=== PATIENT | male | born 1940 | race Caucasian/White ===

== ENCOUNTER → 2017-04-20 | Outpatient (CLI) | payer MEDICARE ==
[2017-04-20 18:14] LABS: LYMPH % 23.5 % (10-50)
[2017-04-20 18:56] LABS: URINE BILIRUBIN - DIPSTICK NEGATIVE (NEG); URINE BLOOD NEGATIVE (NEG)
[2017-04-20 19:07] LABS: HEMOGLOBIN 11.8 g/dL (14.1-18.0)
[2017-04-20 19:29] LABS: BUN 63 mg/dL (7-18)
[2017-04-20 19:31] LABS: GFR (ESTIMATED) 15 ML/MIN (>60)
[2017-04-23 09:38] LABS: Vitamin D, 25-Hydroxy 31.1 ng/mL (30.0-100.0)
== END ==
LOC: LAB 17:44
PROVIDERS: Internal Medicine Nephrology
DX: N18.4 Chronic kidney disease, stage 4 (severe) (principal)

== ENCOUNTER → 2017-04-30 | Outpatient (CLI) | payer MEDICARE ==
[~2017-04-30] MED LIST: ADVICOR 20 MG-51 TER PO; ASPIRIN 81MG TA81 MG PO; AVODART0.5 MG PO; CIPRO 500MG TA500 MG PO; CYCLOBENZAPRINE10 MG PO; FLAGYL500 MG PO; GLIPIZIDE 5MG TA5 MG PO; IRBESARTAN PO; LOMOTIL 0.025 M1 TAB PO; LORATADINE 10MG10 M1 PO; LORTAB 5/500 501 TAB PO; MELOXICAM7.5 MG PO; METFORMIN500 MG PO; METOPROLOL25 MG PO; MULTIVITAMIN1 SGL PO; PHENERGAN 12.12.5 M1 PO; TAMSULOSIN HYD0.4 MG PO; VICODIN 5/500 T1 TAB PO
[2017-04-30 12:18] LABS: BUN 41 mg/dL (7-18)
[2017-04-30 12:26] LABS: GFR (ESTIMATED) 23 ML/MIN (>60)
== END ==
LOC: LAB 10:06
PROVIDERS: Internal Medicine Nephrology
DX: N18.4 Chronic kidney disease, stage 4 (severe) (principal)

== ENCOUNTER 2017-05-28 10:26 | Day surgery (SDC) | payer MEDICARE ==
[~2017-05-28] VITALS: Ht 180.3 cm; Wt 106.6 kg
--- NOTE | 2017-05-28 11:56 | Operative Note ---
Colonoscopy ([facility]) Procedure date: 05/28/17 Date of : 36 Procedure:Colonoscopy Colonoscopy with cold snare polypectomy Indications: Mr. Jaramillo is a 77-year-old gentleman who is here for follow-up screening/ surveillance colonoscopy. He does state that his mother had colon cancer in her early 80s. The patient did have a small tubular adenoma in March 2008. He also had a small polyp removed at the time of his last colonoscopy in April 2011 (3 mm polyp in transverse colonLuis Koko Steward). The patient does have some mild chronic constipation. He reports no rectal bleeding, abdominal pain, weight loss or change in his bowel habits. Performing Provider: Samuel Colin MD Referrring Provider: Carla Luciano M.D. Sedation: MAC sedation Procedure: Prior to the procedure, a history and physical exam was performed, and patient medications and allergies were reviewed. The risks and benefits of the procedure and the sedation options and risks were discussed with the patient. All questions were answered and informed consent was obtained. Patient identification and proposed procedure were verified by the physician and the nurse. The patient was placed in a left lateral decubitus position. Throughout the procedure, the patient's blood pressure, pulse, and oxygen saturations were monitored continuously. Findings: On digital rectal examination there was normal rectal tone. There were no external hemorrhoids. The prostate was 2+, moderately/more significantly firm but symmetric and smooth without nodules. The colonoscope was introduced through the anal canal to the rectum and advanced to the cecum. The ileocecal valve and appendiceal orifice were identified. The scope was advanced a short distance into the ileum which appeared grossly normal. The scope was then withdrawn into the colon. There was a larger 14-16 mm polyp in the cecum that was sessile and elongated and removed via cold snare polypectomy in piecemeal. The remaining cecum, ascending and transverse colon and mucosa were grossly normal. There were scattered diverticuli throughout the descending and sigmoid colon (LEFT colon). The rectum itself was normal. Upon retroflexion within the rectum there were grade 1 internal hemorrhoids. Impressions: 1. Large sessile cecal polyp (14-16 mm) 2. Extensive left-sided diverticulosis 3. Grade 1 internal hemorrhoids 4. Very firm prostate Recommendations: I will follow up the polyp histology. Based upon its larger size, I would consider repeat surveillance colonoscopy based upon the histologic findings but also will discuss whether this is warranted based upon age and comorbidities. I would encourage a fiber bowel regimen on a long-term daily maintenance basis. Complications: None EBL (ml): 0 at 115
[2017-05-28 13:30] VITALS: BP 150/86
== END 2017-05-28 13:18 | disposition home or self-care (01) ==
LOC: SDC 10:26
PROVIDERS: Internal Medicine Gastroenterology
PROC: 0DBH8ZX Excision of Cecum, Via Natural or Artificial Opening Endoscopic, Diagnostic (ICD-10-PCS; principal; 2017-05-28 11:30)
DX: Z12.11 Encounter for screening for malignant neoplasm of colon (principal); Z86.010 Personal history of colon polyps; K63.5 Polyp of colon; K57.30 Diverticulosis of large intestine without perforation or abscess without bleeding; K64.0 First degree hemorrhoids; E11.9 Type 2 diabetes mellitus without complications

== ENCOUNTER 2017-06-09 18:38 | Emergency (ER) | payer MEDICARE ==
[~2017-06-09] VITALS: Ht 180.3 cm; Wt 104.3 kg
--- OUTSIDE RECORDS SUMMARY | 2017-06-09 19:06 | External Medical Summary Rpt | CCD ---
Author Author , CANDELARIA Organization CANDELARIA Address Unknown Phone [email or web address] Purpose Continuity of Care Document - 11-26-2013 through 2016 Results Labs Lab Lab Date Result Refere Interp Status Commen Order Detail nces retati t Range on Glucose capillary blood glucometer (05-28-2017 10:55) Glucose = 86 70-110 complet 017 mg/dl ed capilla 10:[address] CBC w auto diff (05-26-2017 08:23) Blood = 7.6 4.8-10. complet leukocy 017 K/MM3 8 ed ender 08:23 count (number /volume ) Automat = 13.5 11.5-17 complet ed 017 % .5 ed erythro 08:23 cyte distrib ution width Red = 3.52 4.6-6.2 complet blood 017 M/mm3 ed cell 08:23 count Blood = 199 142-424 complet platele 017 K/mm3 ed t count 08:23 Automat = 8.7 7.4-10. complet ed 017 fl 4 ed blood 08:23 platele t mean volume kevyn [place] % = 5.7 % 1.7-9.3 complet 017 ed 08:23 Absolut = 0.4 0.1-1.0 complet e 017 K/mm3 ed monocyt 08:23 e count Automat = 99.5 82.2-97 complet ed 017 fl .8 ed erythro 08:23 cyte mean corpusc ular v Automat = 31.3 31.8-35 complet ed 017 g/dl .4 ed erythro 08:23 cyte mean corpusc ular h Mean = 31.2 27-31.2 complet corpusc 017 pg ed ular 08:23 hemoglo bin (MCH) determ Lymphoc 11-04-2 = 24.1 10-50 complet yte 017 % ed count, 08:23 blood, automat ed Absolut = 1.8 0.7-4.5 complet e 017 K/mm3 ed lymphoc 08:23 yte count Blood = 11.0 14.1-18 complet hemoglo 017 g/dL .0 ed bin 08:23 measure ment (mass/v olum Blood = 35.1 42.0-52 complet hematoc 017 % .0 ed rit 08:23 (volume fractio n) Granulo = 63.9 37.0-80 complet cyte 017 % .0 ed percent 08:23 age Blood = 4.8 1.3-8.0 complet granulo 017 K/mm3 ed cytes 08:23 automat ed count (numb Automat = 5.4 % 0.1-12. complet ed 017 0 ed blood 08:23 eosinop hils/10 0 leukocy t Automat = 0.4 0.0-0.4 complet ed 017 K/mm3 ed blood 08:23 eosinop hil count Baso % = 0.8 % 0.1-2.0 complet 017 ed 08:23 Automat = 0.1 0-0.2 complet ed 017 K/MM3 ed blood 08:23 basophi l count (count/ vo Renal function panel (05-26-2017 08:23) Phospho = 4.8 2.4-4.9 complet erica 017 mg/dL ed measure 08:23 ment Serum = 142 136-145 complet sodium 017 mmoL/L ed measure 08:23 ment Serum = 4.9 3.5-5.1 complet potassi 017 mmoL/L ed um 08:23 measure ment Serum = 101 74-106 complet or 017 mg/dL ed plasma 08:23 glucose measure ment (mas Estimat = 25 >60 complet ed 017 ML/MIN ed glomeru 08:23 lar filtrat ion rate (GF Comment: REFERENCE RANGE: >60 ML/MIN/1.73 SQUARE METERS Comment: If this patient is -[place], then multiply the Comment: result by 1.210. Serum 2 = 2.5 0.70-1. complet or 017 mg/dL 30 ed plasma 08:23 creatin ine measure ment ( Carbon 2 = 20 21.0-32 complet dioxide 017 mmoL/L .0 ed 08:23 measure ment Serum 2 = 111 98-107 complet or 017 mmoL/L ed plasma 08:23 chlorid e measure ment (mo Serum 2 = 8.9 8.5-10. complet or 017 mg/dL 1 ed plasma 08:23 calcium measure ment (mas Serum 2 = 35 7-18 complet or 017 mg/dL ed plasma 08:23 urea nitroge n measure men Serum 2 = 3.4 3.4-5.0 complet or 017 gm/dL ed plasma 08:23 albumin measure ment ([facility] Basic metabolic panel (04-30-2017 10:08) Serum = 143 136-145 complet sodium 017 mmoL/L ed measure 10:08 ment Serum = 5.4 3.5-5.1 complet potassi 017 mmoL/L ed um 10:08 measure ment Serum = 127 74-106 complet or 017 mg/dL ed plasma 10:08 glucose measure ment (mas Estimat = 23 >60 complet ed 017 ML/MIN ed glomeru 10:08 lar filtrat ion rate (GF Comment: REFERENCE RANGE: >60 ML/MIN/1.73 SQUARE METERS Comment: If this patient is -[place], then multiply the Comment: result by 1.210. Serum = 2.7 0.70-1. complet or 017 mg/dL 30 ed plasma 10:08 creatin ine measure ment ( Carbon 2 = 23 21.0-32 complet dioxide 017 mmoL/L .0 ed 10:08 measure ment Serum = 112 98-107 complet or 017 mmoL/L ed plasma 10:08 chlorid e measure ment (mo Serum = 8.6 8.5-10. complet or 017 mg/dL 1 ed plasma 10:08 calcium measure ment (mas Serum 10-09-2 = 41 7-18 complet or 017 mg/dL ed plasma 10:08 urea nitroge n measure men Protein [Presence] in Urine (04-20-2017 17:53) Protein 11.5 0.0mg Normal complet 017 /dL - ed [Presen 17:53 15.0m ce] in g/dL Urine Urinalysis dipstick W Reflex Microscopic panel in Urine (04-20-2017 17:46) Leukocy 5-10 O complet ender 017 wbc/hpf ed [#/volu 17:46 me] in Urine Urinalysis dipstick W Reflex Microscopic panel in Urine (04-20-2017 17:46) Appeara CLEAR CLEAR complet nce of 017 ed Urine 17:46 Bilirub NEGATIV NEG complet in 017 E ed [Presen 17:46 ce] in Urine by Test strip Erythro NEGATIV NEG complet cytes 017 E ed [Presen 17:46 ce] in Urine Color YELLOW YELLOW complet of 017 ed Urine 17:46 Ketones NEGATIV NEG complet 017 E ed [Presen 17:46 ce] in Urine by Automat ed test strip Mucus NEGATIV NEG complet [Presen 017 E ed ce] in 17:46 Urine sedimen t by Light microsc opy Nitrite NEGATIV NEG complet 017 E ed [Presen 17:46 ce] in Urine by Test strip Urobili 0.2 NEG complet nogen 017 ed [Presen 17:46 ce] in Urine by Test strip
--- OUTSIDE RECORDS SUMMARY | 2017-06-09 19:06 | External Medical Summary Rpt | CCD ---
Author Author , CANDELARIA Organization CANDELARIA Address Unknown Phone [email or web address] Purpose Continuity of Care Document - 11-26-2013 [...] blood 08:23 platele t mean volume kevyn [place] % = 5.7 % 1.7-9.3 complet 017 [...] SQUARE METERS Comment: If this patient is -[place], then multiply the Comment: result by 1.210. [...] gm/dL ed plasma 08:23 albumin measure ment ([facility] Basic metabolic panel (04-30-2017 10:08) Serum = [...] SQUARE METERS Comment: If this patient is -[place], then multiply the Comment: result by 1.210. [...]
--- OUTSIDE RECORDS SUMMARY | 2017-06-09 19:07 | External Medical Summary Rpt ---
Author Author DAVEHOANG Richardson, [employer] Address Unknown Phone Unavailable Results Glucose [Mass/volume] in Capillary blood by Glucometer Observa Value Referen Units Interpr Notes Date tion ce etation Range Glucose 70 - 110 mg/dl Normal No May 6 [Mass/vol informati 2016 ume] in on in 10:55 AM Capillary source blood by data Glucomete r Renal function 2000 panel in Serum or Plasma Observa Value Referen Units Interpr Notes Date ti ce etation Range Albumin 3.4 - 5.0 gm/dL Normal No May 4 [Mass/vol informati 2016 8:23 ume] in on in AM Serum or source Plasma data Urea 7 - 18 mg/dL High No May 26 nitrogen informati 2016 8:23 [Mass/vol on in AM ume] in source Serum or data Plasma Calcium 8.5 - mg/dL Normal No May 26 [Mass/vol 10.1 informati 2016 8:23 ume] in on in AM Serum or source Plasma data Chloride 98 - 107 mmoL/L High No May 26 [Moles/vo informati 2017 8:23 lume] in on in AM Serum or source Plasma data Carbon 21.0 - mmoL/L Low No May 26 dioxide, 32.0 informati 2016 8:23 total on in AM [Moles/vo source lume] in data Serum or Plasma Creatinin 0.70 - mg/dL High No May 26 e 1.30 informati 2017 8:23 [Mass/vol on in AM ume] in source Serum or data Plasma Estimated >60 ML/MIN No REFERENCE May 26 informati RANGE: 2017 8:23 glomerula on in >60 AM r source ML/MIN/1. filtratio data 73 SQUARE n rate METERSIf (GF this patient is -A merican, then multiply theresult by 1.210. Glucose 74 - 106 mg/dL Normal No May 26 [Mass/vol informati 2016 8:23 ume] in on in AM Serum or source Plasma data Potassium 3.5 - 5.1 mmoL/L Normal No May 26 informati 2016 8:23 [Moles/vo on in AM lume] in source Serum or data Plasma Sodium 136 - 145 mmoL/L Normal No May 4 [Moles/vo informati 2016 8:23 lume] in on in AM Serum or source Plasma data Phosphate 2.4 - 4.9 mg/dL Normal No May 26 informati 2016 8:23 [Moles/vo on in AM lume] in source Unspecifi data ed specimen CBC W Auto Differential panel in Blood Observa Value Referen Units Interpr Notes Date tion ce etation Range Basophils 0 - 0.2 K/MM3 Normal No May 4 informati 2016 8:23 [#/volume on in AM ] in source Blood by data Automated count Basophils 0.1 - 2.0 % Normal No May 26 /100 informati 2016 8:23 leukocyte on in AM s in source Blood by data Automated count Eosinophi 0.0 - 0.4 K/mm3 Normal No May 4 ls informati 2016 8:23 [#/volume on in AM ] in source Blood by data Automated count Eosinophi 0.1 - % Normal No May 26 ls/100 12.0 informati 2016 8:23 leukocyte on in AM s in source Blood by data Automated count Granulocy 1.3 - 8.0 K/mm3 Normal No May 4 ender informati 2016 8:23 [#/volume on in AM ] in source Blood by data Automated count Granulocy 37.0 - % Normal No May 26 ender/100 80.0 informati 2016 8:23 leukocyte on in AM s in source Blood by data Automated count Hematocri 42.0 - % Low No May 26 t [Volume 52.0 informati 2016 8:23 on in AM Fraction] source of Blood data Hemoglobi 14.1 - g/dL Low No May 26 n 18.0 informati 2016 8:23 [Mass/vol on in AM ume] in source Blood data Lymphocyt 0.7 - 4.5 K/mm3 Normal No May 4 es informati 2016 8:23 [#/volume on in AM ] in source Unspecifi data ed specimen by Automated count Lymphocyt 10 - 50 % Normal No May 4 es informati 2016 8:23 [#/volume on in AM ] in source Unspecifi data ed specimen by Automated count Erythrocy 27 - 31.2 pg Normal No May 4 te mean inform2016 8:23 corpuscul on in AM ar source hemoglobi data n [Entitic mass] Erythrocy 31.8 - g/dl Low No May 26 te mean 35.4 informati 2016 8:23 corpuscul on in AM ar source hemoglobi data n concentra tion [Mass/vol ume] by Automated count Erythrocy 82.2 - fl High No May 26 te mean 97.8 informati 2016 8:23 corpuscul on in AM ar volume source [Entitic data volume] by Automated count Monocytes 0.1 - 1.0 K/mm3 Normal No May 4 informati 2016 8:23 [#/volume on in AM ] in source Blood by data Automated count Monocytes 1.7 - 9.3 % Normal No May 4 /100 informati 2016 8:23 leukocyte on in AM s in source Blood by data Automated count Platelet 7.4 - fl Normal May 26 mean 10.4 informati 2016 8:23 volume on in AM [Entitic source volume] data in Blood by Automated count Platelets 142 - 424 K/mm3 Normal No May 4 2016 8:23 [#/volume on in AM ] in source Blood data Erythrocy 4.6 - 6.2 M/mm3 Low No May 4 ender informati 2016 8:23 [#/volume on in AM ] in source Amniotic data fluid Erythrocy 11.5 - % Normal No May 26 te 17.5 informati 2016 8:23 distribut on in AM ion width source [Entitic data volume] by Automated count Leukocyte 4.8 - K/MM3 Normal No May 4 s 10.8 informati 2016 8:23 [#/volume on in AM ] in source Blood data Basic metabolic panel in Blood Observa Value Referen Units Interpr Notes Date tion ce etation Range Urea 7 - 18 mg/dL High No Apr 9 nitrogen informati 2016 [Mass/vol on in 10:08 AM ume] in source Serum or data Plasma Calcium 8.5 - mg/dL Normal No Apr 30 [Mass/vol 10.1 informati 2016 ume] in on in 10:08 AM Serum or source Plasma data Chloride 98 - 107 mmoL/L High No Apr 9 [Moles/vo informati 2016 lume] in on in 10:08 AM Serum or source Plasma data Carbon 21.0 - mmoL/L Normal No Apr 30 dioxide, 32.0 informati 2017 total on in 10:08 AM [Moles/vo source lume] in data Serum or Plasma Creatinin 0.70 - mg/dL High No Apr 30 e 1.30 informati 2017 [Mass/vol on in 10:08 AM ume] in source Serum or data Plasma Estimated >60 ML/MIN No REFERENCE Apr 30 informati RANGE: 2017 glomerula on in >60 10:08 AM r source ML/MIN/1. filtratio data 73 SQUARE n rate METERSIf (GF this patient is -A merican, then multiply theresult by 1.210. Glucose 74 - 106 mg/dL High No Apr 30 [Mass/vol informati 2016 ume] in on in 10:08 AM Serum or source Plasma data Potassium 3.5 - 5.1 mmoL/L High No Apr 30 informati 2017 [Moles/vo on in 10:08 AM lume] in source Serum or data Plasma Sodium 136 - 145 mmoL/L Normal No Apr 30 [Moles/vo informati 2016 lume] in on in 10:08 AM Serum or source Plasma data Creatinine [Mass/volume] in Urine Observa Value Referen Units Interpr Notes Date tion ce etation Range Creatinin 20 - 370 mg/dL Normal No Apr 20 e informati 2017 5:53 [Mass/vol on in PM ume] in source Urine data Protein [Presence] in Urine Observa Value Referen Units Interpr Notes Date tion ce etation Range Protein 11.5 0.0 - mg/dL Normal No Apr 20 15.0 informa 2016 [Presen tion in 5:53 PM ce] in source Urine data Calcium.ionized [Mass/volume] in Serum or Plasma by Ion-selective membrane electrode (ISE) Observa Value Referen Units Interpr Notes Date tion ce etation Range Calcium.i 4.5 - 5.6 mg/dL No Performed Apr 20 onized informati at: CB 2017 5:46 [Mass/vol on in - [facility] PM ume] in source Serum or data [id number] Plasma by 0 [facility], [facility] membrane [id number] electrode Lab (ISE) Director: Domingo Billings PhD, Phone: [phone] 25-Hydroxyvitamin D [Mass/volume] in Serum or Plasma Observa Value Referen Units Interpr Notes Date tion ce etation Range 25-Hydrox 30.0 - ng/mL No Vitamin D Sep 29 yvitamin 100.0 informati 2016 5:46 D on in deficienc PM [Mass/vol source y has ume] in data been Serum or defined Plasma by the [place] [facility] [place] e and an Endocrine Society practice guideline as alevel of serum 25-OH vitamin D less than 20 ng/mL (1,2).The Endocrine Society went on to further define vitamin Dinsuffic iency as a level between 21 and 29 ng/mL (2).1. IOM (Institut e of Medicine) . 2010. Dietary reference intakes for calcium and D. [place]: [employer].2. Jeff MF, Lili NC, Cathi Fernando AYALA, et al.Evalua tion, treatment , and preventio n of vitamin Ddeficien cy: an Endocrine Society clinical practiceg uideline. JCEM. 2010; 96(7):191 1-30.Perf ormed at: CB - [facility] [id number] [place], [place] [id number] Refrigeration Installer: Domingo Billings PhD, Phone: [phone] Parathyrin.intact [Mass/volume] in Serum or Plasma Observa Value Referen Units Interpr Notes Date tion ce etation Range Parathyri 15 - 65 pg/mL High Performed Sep n.intact at: CB 2016 5:46 [Mass/vol - [facility] PM ume] in Serum or [id number] Plasma [address] [place], [place] [id number] Refrigeration Installer: Domingo Billings PhD, Phone: [phone] Renal function 2000 panel in Serum or Plasma Observa Value Referen Units Interpr Notes Date tion ce etation Range Albumin 3.4 - 5.0 gm/dL Normal No Sep 29 [Mass/vol informati 2017 5:46 ume] in on in PM Serum or source Plasma data Urea 7 - 18 mg/dL High No Sep nitrogen informati 2017 5:46 [Mass/vol on in PM ume] in source Serum or data Plasma Calcium 8.5 - mg/dL Normal No Apr 20 [Mass/vol 10.1 informati 2016 5:46 ume] in on in PM Serum or source Plasma data Chloride 98 - 107 mmoL/L Normal No Sep 29 [Moles/vo informati 2016 5:46 lume] in on in PM Serum or source Plasma data Carbon 21.0 - mmoL/L Normal No Sep 29 dioxide, 32.0 informati 2016 5:46 total on in PM [Moles/vo source lume] in data Serum or Plasma Creatinin 0.70 - mg/dL High No Sep 29 e 1.30 informati 2016 5:46 [Mass/vol on in PM ume] in source Serum or data Plasma Estimated >60 ML/MIN No REFERENCE Sep 29 informati RANGE: 2016 5:46 glomerula on in >60 PM r source ML/MIN/1. filtratio data 73 SQUARE n rate METERSIf (GF this patient is -A merican, then multiply theresult by 1.210. Glucose 74 - 106 mg/dL High No Sep 29 [Mass/vol informati 2016 5:46 ume] in on in PM Serum or source Plasma data Potassium 3.5 - 5.1 mmoL/L High No Sep 29 informati 2016 5:46 [Moles/vo on in PM lume] in source Serum or data Plasma Sodium 136 - 145 mmoL/L Normal No Sep 29 [Moles/vo informati 2016 5:46 lume] in on in PM Serum or source Plasma data Phosphate 2.4 - 4.9 mg/dL High No Sep 29 informati 2016 5:46 [Moles/vo on in PM lume] in source Unspecifi data ed specimen CBC W Auto Differential panel in Blood Observa Value Referen Units Interpr Notes Date tion ce etation Range Basophils 0 - 0.2 K/MM3 Normal No Sep 29 informati 2016 5:46 [#/volume on in PM ] in source Blood by data Automated count Basophils 0.1 - 2.0 % Normal No Sep 29 /100 informati 2016 5:46 leukocyte on in PM s in source Blood by data Automated count Eosinophi 0.0 - 0.4 K/mm3 Normal No Sep 29 ls informati 2016 5:46 [#/volume on in PM ] in source Blood by data Automated count Eosinophi 0.1 - % Normal No Sep 29 ls/100 12.0 informati 2016 5:46 leukocyte on in PM s in source Blood by data Automated count Granulocy 1.3 - 8.0 K/mm3 Normal No Sep 29 ender informati 2016 5:46 [#/volume on in PM ] in source Blood by data Automated count Granulocy 37.0 - % Normal No Sep 29 ender/100 80.0 informati 2016 5:46 leukocyte on in PM s in source Blood by data Automated count Hematocri 42.0 - % Low No Sep 29 t [Volume 52.0 informati 2016 5:46 on in PM Fraction] source of Blood data Hemoglobi 14.1 - g/dL Low No Sep 29 n 18.0 informati 2016 5:46 [Mass/vol on in PM ume] in source Blood data Lymphocyt 0.7 - 4.5 K/mm3 Normal No Sep 29 es informati 2016 5:46 [#/volume on in PM ] in source Unspecifi data ed specimen by Automated count Lymphocyt 10 - 50 % Normal No Sep 29 es informati 2016 5:46 [#/volume on in PM ] in source Unspecifi data ed specimen by Automated count Erythrocy 27 - 31.2 pg Normal No Sep 29 te mean informati 2016 5:46 corpuscul on in PM ar source hemoglobi data n [Entitic mass] Erythrocy 31.8 - g/dl Normal No Sep 29 te mean 35.4 informati 2016 5:46 corpuscul on in PM ar source hemoglobi data n concentra tion [Mass/vol ume] by Automated count Erythrocy 82.2 - fl Normal No Sep 29 te mean 97.8 informati 2016 5:46 corpuscul on in PM ar volume source [Entitic data volume] by Automated count Monocytes 0.1 - 1.0 K/mm3 Normal No Sep 29 informati 2016 5:46 [#/volume on in PM ] in source Blood by data Automated count Monocytes 1.7 - 9.3 % Normal No Sep 29 /100 informati 2016 5:46 leukocyte on in PM s in source Blood by data Automated count Platelet 7.4 - fl Normal No Sep 29 mean 10.4 informati 2016 5:46 volume on in PM [Entitic source volume] data in Blood by Automated count Platelets 142 - 424 K/mm3 Normal No Sep 29 informati 2016 5:46 [#/volume on in PM ] in source Blood data Erythrocy 4.6 - 6.2 M/mm3 Low No Sep 29 ender informati 2017 5:46 [#/volume on in PM ] in source Amniotic data fluid Erythrocy 11.5 - % Normal No Sep 29 te 17.5 informati 2017 5:46 distribut on in PM ion width source [Entitic data volume] by Automated count Leukocyte 4.8 - K/MM3 Normal No Sep 29 s 10.8 informati 2016 5:46 [#/volume on in PM ] in source Blood data Urinalysis dipstick W Reflex Microscopic panel in Urine Observa Value Referen Units Interpr Notes Date tion ce etation Range Appeara CLEAR CLEAR No No No Sep 29 nce of informa informa informa 2017 Urine tion in tion in tion in 5:46 PM source source source data data data Bilirub NEGATIV NEG No No No Sep 29 in E informa informa informa 2016 [Presen tion in tion in tion in 5:46 PM ce] in source source source Urine data data data by Test strip Erythro NEGATIV NEG No No No Sep 29 cytes E informa informa informa 2016 [Presen tion in tion in tion in 5:46 PM ce] in source source source Urine data data data Color YELLOW YELLOW No No No Sep 29 of informa informa informa 2017 Urine tion in tion in tion in 5:46 PM source source source data data data Glucose NEG No No No Sep 29 [Mass/vol informati informati informati 2017 5:46 ume] in on in on in on in PM Urine by source source source Test data data data strip Ketones NEGATIV NEG mg/dL No No Sep 29 E informa informa 2016 [Presen tion in tion in 5:46 PM ce] in source source Urine data data by Automat ed test strip Mucus NEGATIV NEG No No No Sep [Presen E informa informa informa 2016 ce] in tion in tion in tion in 5:46 PM Urine source source source sedimen data data data t by Light microsc opy Nitrite NEGATIV NEG No No No Sep 29 E informa informa informa 2016 [Presen tion in tion in tion in 5:46 PM ce] in source source source Urine data data data by Test strip pH of 5.0 - 8.5 No Normal No Sep 29 Urine informati informati 2017 5:46 on in on in PM source source data data Protein NEG mg/dL No No Sep [Mass/vol informati informati 2017 5:46 ume] in on in on in PM Urine by source source Automated data data test strip Specific 1.005 - No Normal No Sep gravity 1.030 informati informati 2016 5:46 of Urine on in on in PM source source data data Urobili 0.2 NEG E.U./dL No No Apr 20 nogen informa informa 2017 [Presen tion in tion in 5:46 PM ce] in source source Urine data data by Test strip Leukocy [5 O wbc/hpf No FEW WBC Sep ender wbc/hpf informa 2016 [#/volu ; 10 tion in CLUSTER 5:46 PM me] in wbc/hpf source S Urine ] data Urinalysis dipstick W Reflex Microscopic panel in Urine Observa Value Referen Units Interpr Notes Date tion ce etation Range Appeara CLEAR CLEAR No No No Sep nce of informa informa informa 2017 Urine tion in tion in tion in 5:46 PM source source source data data data Bilirub NEGATIV NEG No No No Apr 20 in E informa informa informa 2016 [Presen tion in tion in tion in 5:46 PM ce] in source source source Urine data data data by Test strip Erythro NEGATIV NEG No No No Apr 20 cytes E informa informa informa 2016 [Presen tion in tion in tion in 5:46 PM ce] in source source source Urine data data data Color YELLOW YELLOW No No No Apr 20 of informa informa informa 2017 Urine tion in tion in tion in 5:46 PM source source source data data data Glucose NEG No No No Apr 20 [Mass/vol informati informati informati 2017 5:46 ume] in on in on in on in PM Urine by source source source Test data data data strip Ketones NEGATIV NEG mg/dL No No Sep E informa informa 2016 [Presen tion in tion in 5:46 PM ce] in source source Urine data data by Automat ed test strip Mucus NEGATIV NEG No No No Apr 20 [Presen E informa informa informa 2016 ce] in tion in tion in tion in 5:46 PM Urine source source source sedimen data data data t by Light microsc opy Nitrite NEGATIV NEG No No No Sep E informa informa informa 2016 [Presen tion in tion in tion in 5:46 PM ce] in source source source Urine data data data by Test strip pH of 5.0 - 8.5 No Normal No Sep 29 Urine informati informati 2016 5:46 on in on in PM source source data data Protein NEG mg/dL No No Sep 29 [Mass/vol informati informati 2016 5:46 ume] in on in on in PM Urine by source source Automated data data test strip Specific 1.005 - No Normal No Sep 29 gravity 1.030 informati informati 2016 5:46 of Urine on in on in PM source source data data Urobili 0.2 NEG E.U./dL No No Sep nogen informa informa 2016 [Presen tion in tion in 5:46 PM ce] in source source Urine data data by Test strip MRI SHOULDER LEFT WO CONTRAST Observa Value Referen Units Interpr Notes Date tion ce etation Range No No No No November 26 4\.br\\ informa informa informa informa 2014 .br\MRI tion in tion in tion in tion in 9:17 AM source source source source SHOULDE data data data data R LEFT WO CONTRAS T\.br\\ .br\Ind ication s pain.\. br\\.br \Histor y same.\. br\\.br \Descri bed MR\.br\ \.br\Ex am demonst rates the patient have an undersu rface tear, broad-b ased of\.br\ the subscap ularis. Long\.b r\head of biceps is subluxe d about the majorit y of its course through the\.br \bicipi sylvie interva l.\.br\ The attachm ent on the superio r labrum is intact. The suprasp inatus is\.br\ tendino pathic but there\. br\is no tear the infrasp inatus and teres minor are intact. \.br\\. br\IMPR ESSION: Large undersu rface tear of the subscap ularis with displac ement\. br\of the long head of\.br\ the biceps. Again the long head of biceps is grossly intact and has a\.br\n ormal inserti onal\.b r\footp rint. MRI CERVICAL SPINE WO CONTRAST Observa Value Referen Units Interpr Notes Date tion ce etation Range MRI of No No No No November 26 the informa informa informa informa 2013 cervica tion in tion in tion in tion in 8:36 AM l spine source source source source data data data data without contras t\.br\ \.br\\. br\Comp are: None availab le\.br\ \.br\CL INICAL HISTORY : neck and left arm and shoulde r pain\.b r\\.br\ FINDING S:\.br\ \.br\Ma rrow signal normal in the osseous structu res. Cerebel lar tonsils \.br\no rmally positio mitzy. Cord\.b r\signa l and caliber normal\ .br\\.b r\C2-C3 is normal\ .br\\.b r\At C3-C4 broad-b ased spondyl itic changes present greater in the right\. br\para central and foramin al\.br\ region. There is also moderat e facet arthrop athy on the right with\.b r\moder ate to severe right C4\.br\ foramin al narrowi ng. Left foramen widely patent\ .br\\.b r\At C4-C5 there is broad-b ased disc protrus ion and effacin g the anterio r\.br\C SF and just touchin g\.br\t he anterio r aspect of the cord. The disc protrus ion creates moderat e to\.br\ severe foramin al\.br\ narrowi ng for the exiting left C5 nerve root and mild narrowi ng for the\.br \right C5 root\.b r\\.br\ At C5-C6 there is broad-b ased spondyl itic change greater in the central \.br\an d right paracen tral\.b r\regio n. Effacem ent of the anterio r CSF but no cord linnea albina seen.\. br\Mode rate right and mild\.b r\left C6 foramin al narrowi ng seen\.b r\\.br\ At C6-C7 broad-b ased diffuse disc bulge and spur and mild facet\. br\arth ropathy lead to moderat e\.br\b ilatera l C7 foramin al narrowi ng. No central stenosi s\.br\\ .br\C7- T1 is normal. \.br\\. br\IMPR ESSION: \.br\\. 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 In this patient with left arm\.br \pain the most severe\ .br\fin ding on the left is at C4-C5 where there is moderat e to severe\ .br\for aminal narrowi ng due to a\.br\b road-ba sed disc protrus ion and associa brianda spur.
--- OUTSIDE RECORDS SUMMARY | 2017-06-09 19:07 | External Medical Summary Rpt | CCD ---
Author Author [employer] Organization [employer] Address Unknown Phone Unavailable Purpose Continuity of Care Document - through 2016
--- OUTSIDE RECORDS SUMMARY | 2017-06-09 19:07 | External Medical Summary Rpt ---
Author Author DAVEHOANG Richardson, CANDELARIA [employer] Organization [employer] Address Unknown Phone Unavailable [...] PM ume] in source Serum or data [id number] Plasma by 0 [facility], [facility] membrane [id number] electrode Lab (ISE) Director: Domingo Billings PhD, Phone: [phone] 25-Hydroxyvitamin D [Mass/volume] in Serum or Plasma Observa Value Referen Units Interpr Notes Date tion ce etation Range 25-Hydrox 30.0 - ng/mL No Vitamin D Sep 29 yvitamin 100.0 informati 2016 5:46 D on in deficienc PM [Mass/vol source y has ume] in data been Serum or defined Plasma by the [place] [facility] e and an Endocrine Society practice guideline as alevel of serum 25-OH vitamin D less than 20 ng/mL (1,2).The Endocrine Society went on to further define vitamin Dinsuffic iency as a level between 21 and 29 ng/mL (2).1. IOM (Institut e of Medicine) . 2010. Dietary reference intakes for calcium and D. [place]: [employer].2. Jeff MF, Lili NC, Cathi Fernando AYALA, et al.Evalua tion, treatment , and preventio n of vitamin Ddeficien cy: an Endocrine Society clinical practiceg uideline. JCEM. 2010; 96(7):191 1-30.Perf ormed at: CB - [facility] [id number] [place], [place] [id number] Component Overhaul Operator: Domingo Billings PhD, Phone: [phone] Parathyrin.intact [Mass/volume] in Serum or Plasma Observa Value Referen Units Interpr Notes Date tion ce etation Range Parathyri 15 - 65 pg/mL High Performed Sep n.intact at: CB 2016 5:46 [Mass/vol - [facility] PM ume] in Serum or [id number] Plasma 0 [place], [place] [id number] Component Overhaul Operator: Domingo Billings PhD, Phone: [phone] Renal function 2000 panel in Serum [...]
--- OUTSIDE RECORDS SUMMARY | 2017-06-09 19:07 | External Medical Summary Rpt | CCD ---
Author Author , CANDELARIA GAONA Address Unknown Phone [email or web address] Immunization Name Date Rout CVX Reac Dose Comm Prov Is Faci e tion ent ider Refu lity Give sed n Tdap 04-2 Intr 115 0.5 Hist [facility] No [facility] , 7-20 amus mL oric AREP AREP Adso 17 cula al SCOU SCOU rbed r Info rmat ion - Sour ce Unsp ecif ied PCV1 04-2 133 999 Hist [facility] No FAMC 3 7-20 oric AREP AREP 17 al SCOU SCOU Info rmat ion - Sour ce Unsp ecif ied Td 03-0 Intr 9 999 Hist H196 No H196 (ming 7-19 amus oric lt), 97 cula al r Info adso rmat rbed ion - Sour ce Unsp ecif ied
--- OUTSIDE RECORDS SUMMARY | 2017-06-09 19:07 | External Medical Summary Rpt | CCD ---
Author Author , CANDELARIA GAONA Address Unknown Phone [email or web address] Immunization Name Date Rout CVX Reac Dose [...]
--- NOTE | 2017-06-09 19:18 | Urgent Treatment Center Report ---
History of Present Issue Date/Time Seen by Provider 06/09/171917 Visit Reason Pt arrived:Walked Presenting Problem:INCREASED SWELLING RIGHT LOWER LEG BEGAN YESTERDAY, OLD ABRASION TO RIGHT KNEE X1 WEEK Location if Accident: Onset of symptoms date/time:/ or onset unknown for:MEDICAL HX UNKNOWN Have you (or family members/close friends) recently traveled outside the [place]? If Yes, where/when: Have you had exposure to infectious disease within the past month? TB? Other? Specify: Patient state that he fell about a week ago and caused abrasion on his right knee and chow area State that he is a diabetic and he was scratching the area and yesterday he noticed that his lower leg was swelling and looking like he may have cellulitis State that his had it a few months back so they area aware of what it looks like. State that he wanted to come in and get on antibiotic before it got reallly bad ALLERGIES Coded Allergies: CHOCOLATE (FOOD) (REDNESS 05/28/17) Penicillins (05/28/17) amoxicillin (05/28/17) clavulanic acid (From AUGMENTIN) (05/28/17) meperidine (05/28/17) Uncoded Allergies: PEPPER (F-WJSZER-DGHQ/THROAT 05/08/11) Home Medications Active Scripts DIPHENOXYLATE HCL/ATROPINE (Lomotil 2.5-0.025 MG Tablet) 1 TAB PO Q6HP #20 Prov: 06/23/08 Ciprofloxacin HCl (Cipro 500MG TAB) 500 MG PO BID #20 TAB Prov: 06/23/08 Reported Medications Loratadine (Loratadine 10MG Tablet) 10 MG PO DAILY Glipizide (Glipizide 5MG) 5 MG PO DAILY Meloxicam (Meloxicam 7.5MG) 7.5 MG PO DAILY Metoprolol Tartrate (Metoprolol) 12.5 MG PO DAILY Irbesartan (Irbesartan 75MG Tablet) 75 MG PO DAILY Cyclobenzaprine Hcl (Cyclobenzaprine 10MG) 10 MG PO BID Metformin HCL (Metformin) 500 MG PO 4XDAY NIACIN/LOVASTATIN (Advicor 500 MG-20 MG Tablet) 1 TER PO DAILY Dutasteride (Avodart) 0.5 MG PO DAILY TAMSULOSIN HCL (Tamsulosin 0.4MG) 0.4 MG PO QHS MULTIVITAMIN (Multivitamins) 1 SGL PO DAILY ASPIRIN (Aspirin) 81 MG PO DAILY History Medical History General CAD? No Angina: Yes [place]: No Hypertension? Yes Hyperlipidemia? Yes CHF? No DVT? No PE? No COPD? No Asthma? No Anemia? No GERD? Yes Gastric ulcers? No GI Bleed? No Hernia? No Thyroid Problems? No Hypothyroidism? No CVA? No Seizures? No Diabetes? Yes Insulin Dependent: No Insulin Pump: No Home FSBS? No Renal Insuffiency? No UTI? No Stones? No GB Disease: No Nephritic Syndrome? No Asplenia? No Hepatitis? No Sickle Cell Disease? No Arthritis? Yes Migraines? No Cataracts? No Glaucoma? No MRSA? No HIV? No TB? No Anxiety? No Depression? No Cancer? No Immunization HX DT/Tetanus Unknown Flu LAST YEAR Pneumonia 1-4 YRS Surgical Hx Previous Surgery?Y LEFT ROTATOR CUFF REPAIR DEVIATED SEPTUM REPAIR ANGIOGRAM RT ROTATOR CUFF KIDNEY STONE REMOVAL Family History Family HX Diabetes Yes CAD Yes Hypertension Yes Hyperlipidemia Yes Cancer Yes TB No Social History Alcohol Alcohol: No Review of Systems All Other Systems Reviewed and Negative Physical Exam Vital Signs Vital Signs Date Time Temp Pulse Resp B/P Pulse O2 O2 Flow FiO2 Ox Delivery Rate 06/09 1926 98.7 60 18 143/96 98 06/09 184 98.7 60 18 143/96 98 General Appearance normal appearance, WD/WN, no apparent distress Respiratory Status Yes: trachea midline, chest symmetrical, non tender chest. No: respiratory distress. Lung Sounds bilateral: normal breath sounds, lungs clear. Cardiovascular normal exam Extremities swelling, Right lower extremity large abrasion noted on right knee and below knee which appears to be healing with some mild redness noted around area, leg observed, swelling noted with some mild redness like that seen with cellulitis, good pulses good cap refill, denies pain, no areas of warmth, no temp difference between right and left extremities, no numbness no pain Neurologic alert, normal exam, oriented x 3 Medical Decision Making LABS/Meds/Orders Pt receiving controlled substance in ED? No Results/Orders Current Medication Orders Sig/Amarilys Start time Last Medication Dose Route Stop Time Status Admin Cephalexin 500 MG ONCE ONE 06/09 1945 r Monohydrate PO 06/09 1946 Progress UTC Progress Notes Comment Patient state that he is not allergic to penicillin, he is allergic to Augmentin states that he has taken cephalexin before with no issues or reactions Patient educated on what to watch for and educated on the chance for cross sensitivity Departure Departure Time of Disposition 1930 Disposition DC Home or Self Care(routine) Clinical Impression Primary Impression: Cellulitis Qualifiers: Site of cellulitis: extremity Site of cellulitis of extremity: lower extremity Laterality: right Qualified Code: L03.115 - Cellulitis of right lower limb Condition STABLE Referrals Mustapha FROST,A.C. (Family) FOllow up on Sunday as discussed in the [facility] today and Sooner in ER if symptoms worsen Patient Instructions DI for Cellulitis -- Adult Additional Instructions *Start antibiotic(s) immediately and be sure to take as ordered for the FULL length of time although you may be feeling better or start to see improvement in the next 24-48 hours *Monitor closely. Outlined redness so that you can monitor easier. Follow up immediately for new or worsening symptoms including but not limited to redness, swelling, streaking from site fever or chills. *Monitor Temp. Tylenol every 4 hours as needed and ibuprofen every 6 hours as needed (as long as your primary care doctor has told you that it is ok to take both. For fever, aches, pain. ER if no less that 101 despite Tylenol and ibuprofen Discharge Counseling Counseled pt/family regarding diagnosis, medications/RX, home care, follow up needs Prescriptions Current Visit Scripts CEPHALEXIN (Keflex 500MG Capsule) 500 MG PO Q12H #20 CAP at 1940
[2017-06-09] MEDS ORDERED: KEFLEX 500MG.500 MG PO (19:38)
[2017-06-09 19:48] VITALS: BP 143/96
== END 2017-06-09 19:49 | disposition home or self-care (01) ==
LOC: UTC 18:38 → ER 18:38 → UTC 18:51
DX: L03.115 Cellulitis of right lower limb (principal); E11.9 Type 2 diabetes mellitus without complications; Z79.84 Long term (current) use of oral hypoglycemic drugs; I10 Essential (primary) hypertension; Z88.0 Allergy status to penicillin

== ENCOUNTER → 2017-06-15 | Outpatient (CLI) | payer MEDICARE ==
[~2017-06-15] MED LIST changes: +KEFLEX 500MG.500 MG PO
[2017-06-15 18:49] LABS: BUN 38 mg/dL (7-18)
[2017-06-15 18:50] LABS: GFR (ESTIMATED) 22 ML/MIN (>60)
== END ==
LOC: LAB 18:31
PROVIDERS: Internal Medicine Nephrology
DX: N18.4 Chronic kidney disease, stage 4 (severe) (principal)